=== PATIENT | male | born 1945 | race Caucasian/White ===

== ENCOUNTER → 2023-09-01 06:23 | Day surgery (SDC) | payer OTHER, SELFPAY | LOC: GI 06:23 | PROVIDERS: ATTENDING PHYSICIAN Internal Medicine Gastroenterology | DX: K29.50 Unspecified chronic gastritis without bleeding (principal); K30 Functional dyspepsia | CPT/HCPCS: 43239; 88305; 88341; 88342 ==

== ENCOUNTER → 2023-09-02 09:03 | Outpatient (REF) | payer OTHER, SELFPAY | LOC: DHCBS MAIN 09:03 | PROVIDERS: ATTENDING PHYSICIAN Internal Medicine Cardiovascular Disease; FAMILY PHYSICIAN Student in an Organized Health Care Education/Training Program | DX: I77.810 Thoracic aortic ectasia (principal) | CPT/HCPCS: 93306 ==

== ENCOUNTER → 2023-09-13 07:41 | Outpatient (REF) | payer OTHER, SELFPAY | LOC: EMG 07:41 | PROVIDERS: ATTENDING PHYSICIAN Student in an Organized Health Care Education/Training Program | DX: R20.2 Paresthesia of skin (principal); R20.0 Anesthesia of skin | CPT/HCPCS: 95886; 95911 ==

== ENCOUNTER 2023-12-16 15:35 | Emergency (ER) | payer OTHER, SELFPAY ==
[2023-12-16 15:37] VITALS: BP 101/74
[2023-12-16 16:05] VITALS: BMI 27.3
[2023-12-16 16:06] VITALS: BP 131/92
--- NOTE | 2023-12-16 16:30 | ED.GENMED ---
History of Present Illness
General
Chief Complaint: Abdominal Symptoms
Source: patient
Exam Limitations: none
Time Seen by Provider: 12/16/23 16:08
Nursing documentation reviewed up to this point in time: agreed with
Travel History
Have you had any contact with someone who has COVID-19?: No
Do you have any symptoms of coronavirus? Fever > 100 degrees, chills, cough, shortness of breath, sore throat, loss of taste or smell, muscle aches, or headache?: No
History of Present Illness
History of Present Illness:
78-year-old male with a past medical history as documented who presents to the emergency department for evaluation of diarrhea. Patient reports that he returned from a vacation in [facility] 2 days ago (he says that he was on a cruise). He says that
night he returned he had a mild cough and the next day cough lasted the rest of the morning but seem to go away as the day went on. Yesterday late morning/afternoon however he started developing profuse watery diarrhea�he says that he was
constantly on and off the toilet, unable to count how many times he passed watery stool. He did not notice any blood in his stool. He says he did have a single episode of vomiting. He says that the diarrhea continued today and he felt he was
getting dehydrated and so he came to the emergency room to be assessed. He does not have any associated abdominal pain. He denies any congestion or sore throat. He denies any fever at present but says that Wednesday evening he had a low-grade fever
of 100.6 �F that did not recur. He says that he took a COVID test at home that was positive.
Past History
Past History
ED Past Medical History: Cancer
ED Past Surgical History: Orthopedic
Social History
Tobacco: Non-smoker
Alcohol: Occasional
Drug: None
Review of Systems
Review of Systems
All Other Systems: ROS reviewed and negative except as documented in HPI and ROS
Constitutional: Reports fever (Single low-grade temp); Denies chills
EENT: Denies sore throat or runny nose
Respiratory: Reports cough (Mild and resolved); Denies trouble breathing
Cardiac: Denies chest pain or palpitations
ABD/GI: Reports vomiting (Single episode) and diarrhea; Denies abdominal pain, nausea or bloody stools
: Denies flank pain
Musculoskeletal: Denies muscle pain, neck pain or back pain
Neurological: Denies dizzy or headache
Phy Exam
Physical Exam
Physical Exam:
General: Awake, alert, oriented x3; no acute distress
Head: Normocephalic, atraumatic
Eyes: Conjunctiva normal, EOMI
Throat: Airway intact, dry mucous membranes
Neck: Trachea midline
Lungs: Clear to auscultation bilaterally, no wheezing, rales, rhonchi
Heart: Tachycardia with regular rhythm, no murmurs, gallops, or rubs
Abd: Soft, non distended, nontender with no abdominal mass
Neuro: No gross deficit
Skin: Dry, no rash
Extremities: No edema in extremities, warm well-perfused
Scores
Heart Failure Risk
Heart Failure Risk Score: Not Applicable
Heart Score for Chest Pain Patients
STEMI patient?: Not applicable
Withdrawal Assessment of Alcohol
Withdrawal Assessment Completed?: Not applicable
Course
Orders/Labs/Results
Orders:
Orders
12/16/23 16:21
COVID-19 Antigen Urgent
Source: Nasal Swab
Complete Blood Count/With Diff Urgent
Comprehensive Metabolic Panel Urgent
12/16/23 16:31
0.9% Sodium Chloride 1000 ml [Nss] 1,000 ml IV BOLUS
12/16/23 19:18
Magnesium Urgent
Norovirus by PCR Urgent
INNA Source: Feces/Stool
Specimen Description:
Date Specimen was Collected: 12/16/23
Time Specimen was Collected: 19:14
STOOL [C difficile Antigen & Toxins] Urgent
INNA Source: Feces/Stool
Specimen Description:
Date Specimen was Collected: 12/16/23
Time Specimen was Collected: 19:14
Stool Culture Urgent
INNA Source: Feces/Stool
Specimen Description:
Date Specimen was Collected: 12/16/23
Time Specimen was Collected: 19:14
Abnormal Lab Results
12/16/23
16:21
RBC 4.63 L 10^6/uL
(4.70-6.10)
MCH 32.2 H pg
(27.0-31.0)
MPV 11.4 H fL
(7.4-10.4)
Abs Immat Gran (auto) 0.1 H 10^3/uL
(0-0.05)
Absolute Lymphs (auto) 0.2 L 10^3/uL
(1.2-3.4)
Immature Gran % 0.9 H %
(0-0.5)
Neutrophils % 93.1 H %
(42.2-75.2)
Lymphocytes % 2.3 L %
(20.5-51.1)
BUN 35 H mg/dl
(9-20)
Glucose 169 H mg/dl
(70-99)
SARS-CoV-2 Antigen Positive A
(Negative)
12/16/23 16:21
12/16/23 16:21
Vital Signs
Initial and Last Documented VS:
Initial Vital Signs
Temp Pulse Resp BP Pulse Ox
36.8 C 104 18 101/74 98
12/16/23 15:37 12/16/23 15:37 12/16/23 15:37 12/16/23 15:37 12/16/23 15:37
Last Documented Vital Signs
Temp Pulse Resp BP Pulse Ox
36.8 C 104 18 140/79 95
12/16/23 15:37 12/16/23 15:37 12/16/23 15:37 12/16/23 20:00 12/16/23 20:00
MDM/Problems Addressed
Differential Diagnosis Includes:
Diarrheal illness: Differential includes viral versus bacterial gastroenteritis/colitis. COVID certainly can cause diarrhea but given his profuse diarrhea and recent vacation on a cruise ship will check for norovirus; will send stool for C.
difficile and O&P culture although lower suspicion based on clinical history
MDM/Problems Addressed:
78-year-old male presents for evaluation of profuse diarrhea over the past 48 hours�did have mild cough and low-grade temp that preceded the symptoms. He has had a single episode of vomiting but mainly diarrhea. No abdominal pain. Recently
returned from a cruise vacation in [facility]. Tachycardic but otherwise normal vitals. Exam as documented above�appears dry. Will plan to place an IV and send basic labs including a CBC and a CMP, mag level. Will check COVID swab. Will send
stool for culture and C. difficile testing. Check norovirus testing. Provide IV fluids. Will reassess after the above.
Labs reviewed: CBC unremarkable, CMP no clinically significant abnormalities�notably normal bicarb and potassium, normal creatinine. COVID swab was positive. We were able to collect a stool sample which was sent off to the lab. He has not had
significant amount of diarrhea here only 1 bowel movement. He is taking p.o. without issue. He appears well-hydrated. Heart rate normalized. I think he is stable for discharge advised to drink plenty of fluids. Likely viral no indication for
antibiotics at this point. Patient feels comfortable discharge. Spoke about return precautions all questions answered.
*Pulse Oximetry
Patient hypoxic: no
*Critical Care Note
Total Time (30-74mins, 75-104mins- exclusive of procedures): Not Applicable
Data Reviewed
Source: patient and records
ED Attending Note
-
Portions of this chart may have been created with voice recognition software.� Occasional wrong word or��sound alike� substitutions may have occurred due to the inherent limitations of voice recognition software.
Discharge Plan
Departure
Patient Disposition: Home (Routine Discharge)
Date of Disposition: 12/16/23
Time of Disposition: 20:11
Patient with high blood pressure during this ER visit?: No
Discharge Problem:
Viral gastroenteritis, COVID-19
Instructions: Viral gastroenteritis in adults, Dehydration, Adult (DC)
Prescriptions:
No Action
docosahexaenoic acid-epa 1 CAP capsule
1 cap PO DAILY
glucosamine okeefe 2KCl-chondroit [Glucosamine Sulf-Chondroitin] 1 EACH capsule
1 cap PO DAILY
nfyhlqdqktzr-ftaf-vkzeg acid [Centrum] 1 EACH tablet
1 ea PO DAILY
apixaban [Eliquis] 5 MG tablet
10 mg PO Q12 30 Days Qty: 68 3RF
Rx Instructions:
2 tab (10 mg) twice a day for 5 more days May 23 last day.
then 1 tab (5mg) twice a day from then on.
Referrals:
Alison Kelley DO [Family Provider] - Follow up in 2-3 days
Activity Restrictions/Additional Instructions:
Thank you for visiting the Emergency Department at [facility].
1. Please schedule a follow up appointment as directed. Call first thing tomorrow morning to make an appointment.
2. If indicated, please take your medications as instructed and indicated on discharge paperwork.
3. If any of your symptoms do not improve, or persist, or become more severe within 6-12 hours, please return to the emergency department for further care.
4. Please return to the emergency department if you develop a headache, neck pain/stiffness, fever greater than 100.4F, chest pain, shortness of breath, persistent nausea, vomiting, slurred speech, difficulty walking, numbness/tingling, weakness,
signs of infection or any other symptoms that are worrisome to you.
Please call [phone] if you have any questions.
Interventions
Interventions:
*Risk Screen - Suicide Last Done: 12/16/23 15:37
*General Assessment Last Done: 12/16/23 15:37
*Neglect/Abuse Screening Last Done: 12/16/23 15:37
ED- Fall Risk Assessment Last Done: 12/16/23 16:07
*ED COVID-19 Vaccine History Last Done: 12/16/23 16:07
*Nursing Disposition Last Done: 12/16/23 20:28
JO-Pxzxqs-Cqbfmrvrlc Assessment Last Done: 12/16/23 16:07
Discharge Date and Time
Discharge Date/Time: 12/16/23 20:31
Print Language: UKRAINIAN
[2023-12-16 16:38] LABS: % Immature Granulocytes 0.9 % (0-0.5); % Lymphocytes 2.3 % (20.5-51.1); % Monocytes 3.7 % (1.7-9.3); % Neutrophils 93.1 % (42.2-75.2); Absolute Immature Granulocytes 0.1 10^3/uL (0-0.05); Absolute Lymphocytes 0.2 10^3/uL (1.2-3.4); Absolute Monocytes 0.3 10^3/uL (0.1-0.6); Absolute Neutrophils 6.5 10^3/uL (1.4-6.5); Hematocrit 42.5 % (39.0-52.0); Hemoglobin 14.9 g/dL (13.0-18.0); Mean Corp Hgb Conc. 35.1 g/dL (33.0-37.0); Mean Corpuscular Hgb 32.2 pg (27.0-31.0); Mean Corpuscular Volume 91.8 fL (80.0-94.0); Mean Platelet Volume 11.4 fL (7.4-10.4); Nucleated Red Blood Cells % 0 % (-); Platelet Count 153 10^3/uL (130-400); Red Blood Cell Count 4.63 10^6/uL (4.70-6.10); Red Cell Dist. Width 12.8 % (11.5-14.5)
[2023-12-16 16:46] LABS: COVID-19 Antigen Positive (Negative)
[2023-12-16 16:51] LABS: ALT (SGPT) 30 U/L (0-50); AST (SGOT) 33 U/L (17-59); Albumin 4.2 g/dl (3.5-5.0); Alkaline Phosphatase 56 U/L (38-126); Blood Urea Nitrogen 35 mg/dl (9-20); Calcium 8.5 mg/dl (8.4-10.2); Carbon Dioxide 24 mmol/L (22-30); Chloride 101 mmol/L (98-107); Estimated Creatinine Clearance 60 ml/min; Glucose 169 mg/dl (70-99); Potassium 4.5 mmol/L (3.5-5.1); Sodium 136 mmol/L (135-145); Total Bilirubin 0.6 mg/dl (0.2-1.3); Total Protein 7.3 g/dl (6.3-8.2); eGFR > 60.00
[2023-12-16] MEDS: NSS 1000 IV (16:55)
[2023-12-16 19:00] VITALS: BP 129/82
[2023-12-16 19:46] LABS: Magnesium 1.8 mg/dl (1.6-2.3)
[2023-12-16 20:00] VITALS: BP 140/79
== END 2023-12-16 20:31 | disposition home or self-care (01) ==
LOC: EMR 15:35
PROVIDERS: EMERGENCY PHYSICIAN Emergency Medicine; FAMILY PHYSICIAN Student in an Organized Health Care Education/Training Program
DX: U07.1 COVID-19 (principal); A08.39 Other viral enteritis
CPT/HCPCS: 99283; 96360; 80053; 83735; 85025; 87045; 87046; 87077; 87324; 87427; 87449; 87798; 87811

== ENCOUNTER → 2024-12-29 08:16 | Outpatient (REF) | payer OTHER, SELFPAY | LOC: RAD 08:16 | PROVIDERS: ATTENDING PHYSICIAN Nurse Practitioner Family | DX: R06.02 Shortness of breath (principal) | CPT/HCPCS: 71046 ==